=== PATIENT | female | born 1990 | race Two or more races ===

== ENCOUNTER 2021-11-29 15:55 | Emergency (ER) | payer MEDICAID ==
[~2021-11-29] VITALS: Ht 165.1 cm; Wt 85.0 kg
[2021-11-29 16:02] VITALS: BP 103/83
[2021-11-29 16:36] LABS: Basophils # (auto) 0 10 ^3/uL (0-0.2); Basophils % (auto) 0.2 % (0.0-2.0); Eosinophils # (auto) 0 10 ^3/uL (0-0.8); Hematocrit 41.3 % (36.0-46.0); Lymphocytes # (auto) 0.8 10 ^3/uL (0.4-5.4); Lymphocytes % (auto) 4.4 % (10.0-50.0); Mean Corpuscular Hemoglobin 28.4 pg (28.0-32.0); Mean Corpuscular Hgb Conc. 33.9 g/dL (32.0-36.0); Mean Corpuscular Volume 83.7 fL (80.0-100.0); Monocytes # (auto) 0.3 10 ^3/uL (0-1.3); Monocytes % (auto) 1.5 % (0.0-12.0); Neutrophils # (auto) 16.7 10 ^3/uL (1.6-8.6); Neutrophils % (auto) 93.9 % (37.0-80.0); Red Blood Cells 4.94 10^6/uL (4.0-5.20); Red Cell Distribution Width 12.7 % (11.8-14.3); White Blood Cell 17.8 10^3/uL (4.4-10.8)
[2021-11-29 17:06] LABS: Albumin 3.8 g/dL (3.4-5.0); BUN/Creatinine Ratio 13.3; Calcium 8.7 mg/dL (8.5-10.1); Potassium 3.8 mmol/L (3.5-5.1)
[2021-11-29 17:09] LABS: Bilirubin, Total 1.6 mg/dL (0.2-1.0); Total Protein 7.4 g/dL (6.4-8.2)
== END 2021-11-29 19:30 | disposition left against medical advice (07) ==
LOC: ER 15:55
DX: O21.8 Other vomiting complicating pregnancy (principal); R10.9 Unspecified abdominal pain; R10.2 Pelvic and perineal pain; Z3A.11 11 weeks gestation of pregnancy; Z53.21 Procedure and treatment not carried out due to patient leaving prior to being seen by health care provider
CPT/HCPCS: 36415; 80053; 84702; 85025

== ENCOUNTER 2021-12-02 08:43 | Inpatient (IN) | payer MEDICAID ==
[~2021-12-02] VITALS: Ht 165.1 cm; Wt 85.4 kg
[2021-12-02] MEDS ORDERED: SODIUM CHLORIDE 0.9% 1,000 ML IVB ONE ×2 (09:45→10:45)
[2021-12-02] MEDS ORDERED: ONDANSETRON HCL 4 MG/2 ML VIAL IV ONE (09:45)
[2021-12-02 09:48] LABS: Basophils # (auto) 0.1 10 ^3/uL (0-0.2); Eosinophils # (auto) 0 10 ^3/uL (0-0.8); Eosinophils % (auto) 0.4 % (0.0-7.0); Hematocrit 42.7 % (36.0-46.0); Hemoglobin 14.8 g/dL (12.2-16.2); Lymphocytes # (auto) 1.8 10 ^3/uL (0.4-5.4); Lymphocytes % (auto) 15.1 % (10.0-50.0); Mean Corpuscular Hemoglobin 28.7 pg (28.0-32.0); Mean Corpuscular Hgb Conc. 34.6 g/dL (32.0-36.0); Mean Corpuscular Volume 82.9 fL (80.0-100.0); Monocytes # (auto) 0.6 10 ^3/uL (0-1.3); Monocytes % (auto) 5.2 % (0.0-12.0); Neutrophils # (auto) 9.6 10 ^3/uL (1.6-8.6); Neutrophils % (auto) 78.3 % (37.0-80.0); Red Blood Cells 5.15 10^6/uL (4.0-5.20); Red Cell Distribution Width 12.3 % (11.8-14.3); White Blood Cell 12.2 10^3/uL (4.4-10.8)
[2021-12-02] MEDS ORDERED: PROMETHAZINE HCL 25 MG/ML 1ML IV ONE ×2 (10:00→13:30)
[2021-12-02 10:05] LABS: Albumin 3.9 g/dL (3.4-5.0); Calcium 9.1 mg/dL (8.5-10.1); Potassium 3.5 mmol/L (3.5-5.1)
[2021-12-02 10:08] LABS: BUN/Creatinine Ratio 11.6; Bilirubin, Total 1.7 mg/dL (0.2-1.0); Total Protein 7.7 g/dL (6.4-8.2)
[2021-12-02 10:13] LABS: Magnesium 2.3 mg/dL (1.6-2.6)
[2021-12-02] MEDS ORDERED: PANTOPRAZOLE 40 MG TAB PO ONE (10:45)
[2021-12-02] MEDS ORDERED: DONNATAL 5ml ORAL Elix (BELLADONNA ALK-PHENOBARB) PO ONE (10:45)
[2021-12-02] MEDS ORDERED: MORPHINE SULFATE 4 MG/ML SYR/VIAL IV ONE (10:45)
[2021-12-02] MEDS ORDERED: ALUM & MAG HYDROX-SIMETH LIQ(MAALOX) 30 ML PO ONE (10:45)
[2021-12-02 17:18] LABS: Urine Bacteria FEW /hpf (None Seen); Urine Blood 1+ /uL (Negative); Urine Mucus FEW (None Seen); Urine WBC <1 /hpf (0 - 5)
[2021-12-02 17:29] LABS: Alcohol, Urine < 3.0 mg/dL (0-10); Amphetamine Screen, Urine NEGATIVE (NEGATIVE); Barbiturate Scree,Urine NEGATIVE (NEGATIVE); Benzodiazephine Screen, Urine NEGATIVE (NEGATIVE); Cannabinoid Screen, Urine POSITIVE (NEGATIVE); Cocaine Screen, Urine NEGATIVE (NEGATIVE); Opiate Scree,Urine POSITIVE (NEGATIVE); Phencyclidine Screen, Urine NEGATIVE (NEGATIVE)
[2021-12-02] MEDS ORDERED: ACETAMINOPHEN 325 MG TAB PO PRN ×2 (18:45)
[2021-12-02] MEDS: D5W/LACTATED RINGERS 1,000 ML IV SCH (18:45)
[2021-12-02] MEDS: PROMETHAZINE HCL 25 MG/ML 1ML IV PRN (20:44)
[2021-12-02] MEDS ORDERED: ONDANSETRON HCL 4 MG/2 ML VIAL IV SCH (22:00)
[2021-12-03] MEDS: D5W/LACTATED RINGERS 1,000 ML IV SCH ×3 (01:25→14:45)
[2021-12-03] MEDS: PROMETHAZINE HCL 25 MG/ML 1ML IV PRN ×4 (05:08→16:15)
[2021-12-03] MEDS ORDERED: METOCLOPRAMIDE HCL 5MG/ml INJ 2ml VIAL IV SCH ×2 (10:00)
[2021-12-03 12:58] VITALS: BP 125/77
[2021-12-03 17:00] VITALS: BP 136/90
[2021-12-03] MEDS ORDERED: FAMOTIDINE (10MG/ML) 2ML VL IV SCH (18:00)
== END 2021-12-03 18:20 | disposition left against medical advice (07) | DRG 566 ==
LOC: ER 08:43 → OVERFLOW 18:40 → WEST WING 12-03 08:42
PROVIDERS: ADMIT Obstetrics & Gynecology; ATTEND Obstetrics & Gynecology
PROC: 05HC33Z Insertion of Infusion Device into Left Basilic Vein, Percutaneous Approach (ICD-10-PCS; principal; 2021-12-03)
PROC: B54NZZA Ultrasonography of Left Upper Extremity Veins, Guidance (ICD-10-PCS; 2021-12-03)
DX: O21.0 Mild hyperemesis gravidarum (principal); O99.321 Drug use complicating pregnancy, first trimester; E86.0 Dehydration; Z20.822 Contact with and (suspected) exposure to COVID-19; O99.281 Endocrine, nutritional and metabolic diseases complicating pregnancy, first trimester; Z53.29 Procedure and treatment not carried out because of patient's decision for other reasons; Z3A.12 12 weeks gestation of pregnancy; F12.90 Cannabis use, unspecified, uncomplicated
CPT/HCPCS: 36415; 80053; 80307; 81001; 83690; 83735; 84702; 85025; 87426; 96361; 96374; 96375; G0378

== ENCOUNTER 2021-12-17 14:02 | Emergency (ER) | payer MEDICAID ==
[~2021-12-17] VITALS: Ht 170.2 cm; Wt 75.0 kg
[2021-12-17 14:07] VITALS: BP 129/52
[2021-12-17] MEDS ORDERED: PROMETHAZINE HCL 25 MG/ML 1ML IV ONE (14:30)
[2021-12-17] MEDS ORDERED: SODIUM CHLORIDE 0.9% 1,000 ML IV ONE ×2 (14:30)
[2021-12-17 14:47] LABS: Basophils # (auto) 0 10 ^3/uL (0-0.2); Basophils % (auto) 0.3 % (0.0-2.0); Eosinophils # (auto) 0 10 ^3/uL (0-0.8); Hemoglobin 13.9 g/dL (12.2-16.2); Lymphocytes # (auto) 0.6 10 ^3/uL (0.4-5.4); Lymphocytes % (auto) 3.6 % (10.0-50.0); Mean Corpuscular Hgb Conc. 34.7 g/dL (32.0-36.0); Mean Corpuscular Volume 83.7 fL (80.0-100.0); Monocytes # (auto) 0.1 10 ^3/uL (0-1.3); Monocytes % (auto) 0.5 % (0.0-12.0); Neutrophils # (auto) 17.3 10 ^3/uL (1.6-8.6); Neutrophils % (auto) 95.6 % (37.0-80.0); Red Blood Cells 4.78 10^6/uL (4.0-5.20); Red Cell Distribution Width 13.3 % (11.8-14.3); White Blood Cell 18.1 10^3/uL (4.4-10.8)
[2021-12-17 15:03] LABS: Albumin 3.7 g/dL (3.4-5.0); Potassium 3.4 mmol/L (3.5-5.1)
[2021-12-17 15:06] LABS: BUN/Creatinine Ratio 7.8; Bilirubin, Total 0.9 mg/dL (0.2-1.0); Total Protein 7.5 g/dL (6.4-8.2)
== END 2021-12-18 18:06 | disposition left against medical advice (07) ==
LOC: EDBD 14:02 → ER 14:02 → EDUNIT# 14:02 → ER 15:18
DX: O21.8 Other vomiting complicating pregnancy (principal); Z3A.13 13 weeks gestation of pregnancy
CPT/HCPCS: 36415; 76801; 80053; 84702; 85025